=== PATIENT | male | born 1960 | race Caucasian/White ===

== ENCOUNTER 2016-11-02 07:06 | Day surgery (SDC) | payer BC ==
[~2016-11-02 07:06] MED LIST: Lactated Ringers 1,000 ML IV SCH
[2016-11-02] MEDS ORDERED: Acetaminophen 1,000 MG in Premix Bag 1 BAG IV ONE (08:21)
[2016-11-02] MEDS ORDERED: Bupivacaine 0.25%/EPINEPHrine 1:200,000 30 ML SDV ONE (08:37)
[2016-11-02] MEDS ORDERED: Ketamine 200 MG/20 ML MDV ONE (08:48)
[2016-11-02] MEDS ORDERED: fentaNYL 100 MCG/2 ML SDV ONE (08:48)
[2016-11-02] MEDS ORDERED: Propofol 200 MG/20 ML SDV ONE (08:48)
[2016-11-02] MEDS ORDERED: Ketorolac 30 MG/ML SDV ONE (09:57)
[2016-11-02] MEDS ORDERED: Acetaminophen/oxyCODONE 325-5 MG Tab PO PRN (10:46)
[2016-11-02 13:15] VITALS: BP 118/73
--- NOTE | 2016-11-02 14:38 | OR ---
PREOPERATIVE DIAGNOSIS: Symptomatic umbilical hernia. POSTOPERATIVE DIAGNOSIS: Symptomatic umbilical hernia. PROCEDURE PROPOSED: Umbilical hernia repair. PROCEDURE DONE: Umbilical hernia repair. INDICATION: This is a middle-aged gentleman with a symptomatic umbilical hernia, who comes in now for elective repair technique. The patient brought to the operative suite, given some IV sedation. His periumbilical region was trimmed and sterilely prepped and draped. The area was then locally anesthetized with 0.25% Marcaine with epinephrine. An infraumbilical transverse incision was made, carried down through the subcutaneous tissue. The hernia sac was freed up from the surrounding structures. The hernia was then reduced to any other fascial defect. It only measured about 1.5 cm. The edges of the fascia were trimmed up and was then closed in a transverse fashion with interrupted 0 Ethibond sutures, using approximately 6 stitches. The base umbilicus was then anchored to the fascia with 2 stitches of 3-0 Vicryl. The subcutaneous tissue reapproximated with interrupted 3-0 Vicryl. The skin closed with subcuticular stitch of 4-0 Vicryl and a sterile pressure dressing was applied. He tolerated the procedure well with minimal blood loss, and he was taken back to day surgery in good condition. SCM: 11/02/2016 10:04:15 MODL: 11/02/2016 11:13:55 /[id number]
== END 2016-11-02 12:20 | disposition home or self-care (01) ==
LOC: VM.SDS 07:06
PROVIDERS: ATTEND Surgery
DX: K42.9 Umbilical hernia without obstruction or gangrene (principal); I10 Essential (primary) hypertension; G47.33 Obstructive sleep apnea (adult) (pediatric); E78.5 Hyperlipidemia, unspecified; Z87.891 Personal history of nicotine dependence; Z79.82 Long term (current) use of aspirin; Z79.899 Other long term (current) drug therapy; Z98.52 Vasectomy status
CPT/HCPCS: 49585; A9270; J1885; J2704; J3010; J7120

== ENCOUNTER 2019-01-29 02:55 | Emergency (ER) | payer BC, OTHER ==
[2019-01-29] MEDS ORDERED: Sodium Chloride 0.9% 10 ML Syringe FLUSH PRN (03:13)
[2019-01-29] MEDS ORDERED: Nitroglycerin 0.4 MG Tab.SL SL ONE (03:17)
--- NOTE | 2019-01-29 03:48 | EDM.PDOC ---
ED HPI GENERAL MEDICAL PROBLEM - General Chief Complaint: Chest Pain Stated Complaint: Chest Pain Time Seen by Provider: 01/29/19 03:35 Source of Information: Reports: Patient History Limitations: Reports: No Limitations - History of Present Illness INITIAL COMMENTS - FREE TEXT/NARRATIVE: Pt. presents to ER with complaints of chest pressure, neck pain, and lip numbness. He states that he started having chest pain intermittently throughout the day yesterday. He states that he has a "chest cold" and has been coughing for the past several days. He states that he is also experiencing sinus congestion. He took Nyquil tonight to help him sleep. Pt. states that he went to bed at 2100 last night and work up at 2300 with chest pressure. He has continued to have it intermittently since then. He also complains of tingling to his upper and lower lips intermittently today as well. He states that he feels like he "can't get his air" and states that he feels anxious. He took 5 81 mg. ASA last night before he went to bed. Pt. also complains of a "kink in his neck" but on further questioning, he complains that his neck has been hurting all winter. Also, he states that he exerted himself moving a trailer yesterday. Comorbidities include smoking and hypertension. Denies any dyslipidemia or diabetes. Pt. states that his brother had his first heart attack at age 41. Pt. denies any nausea or vomiting. No back pain. No jaw pain. No nausea or vomiting. Denies diaphoresis. No lightheadedness. Onset: Today Onset Date: 01/28/19 Location: Reports: Chest Quality: Reports: Ache Associated Symptoms: Reports: Shortness of Breath. Denies: Nausea/Vomiting, Weakness Chest Pain Score (Numeric/FACES): 2 - Related Data Allergies Allergy/AdvReac Type Severity Reaction Status Date / Time No Known Allergies Allergy Verified 01/29/19 04:25 Home Meds: Home Meds Aspirin [Halfprin] 81 mg PO DAILY 10/27/16 [History] Enalapril Maleate [Vasotec] 10 mg PO DAILY 10/27/16 [History] Hydrochlorothiazide 12.5 mg PO QAM 10/27/16 [History] Multivitamin [Multivitamins] 1 tab PO DAILY 10/27/16 [History] Past Medical History Cardiovascular History: Reports: High Cholesterol, Hypertension Respiratory History: Reports: Sleep Apnea Gastrointestinal History: Reports: Other (See Below) Other Gastrointestinal History: UMB HERNIA - Past Surgical History GI Surgical History: Reports: Hernia, Inguinal ED ROS GENERAL - Review of Systems Review Of Systems: See Below Constitutional: Reports: No Symptoms HEENT: Reports: Other (lip tingling) Respiratory: Reports: Shortness of Breath Cardiovascular: Reports: Chest Pain Endocrine: Reports: No Symptoms GI/Abdominal: Reports: No Symptoms : Reports: No Symptoms Musculoskeletal: Reports: Neck Pain Skin: Reports: No Symptoms Neurological: Reports: No Symptoms Psychiatric: Reports: No Symptoms Hematologic/Lymphatic: Reports: No Symptoms Immunologic: Reports: No Symptoms ED EXAM, GENERAL - Physical Exam Exam: See Below Exam Limited By: No Limitations General Appearance: Alert, WD/WN, No Apparent Distress Nose: Normal Inspection Throat/Mouth: Normal Inspection, Normal Lips, Normal Gums, Normal Oropharynx, Normal Voice, No Airway Compromise Head: Atraumatic, Normocephalic Neck: Normal Inspection, Supple, Non-Tender, Full Range of Motion Respiratory/Chest: No Respiratory Distress, Normal Breath Sounds, No Accessory Muscle Use, Decreased Breath Sounds, Crackles, Wheezing Cardiovascular: Normal Peripheral Pulses, Regular Rate, Rhythm, No Edema, No Gallop, No JVD, No Murmur Peripheral Pulses: 4+: Radial (L), Radial (R), Dorsalis Pedis (L), Dorsalis Pedis (R) GI/Abdominal: Normal Bowel Sounds, Soft, Non-Tender, No Organomegaly, No Distention (Male) Exam: Deferred Rectal (Males) Exam: Deferred Back Exam: Normal Inspection, Full Range of Motion Extremities: Normal Inspection, Normal Range of Motion, Non-Tender, No Pedal Edema, Normal Capillary Refill Neurological: Alert, Oriented, CN II-XII Intact, Normal Cognition, Normal Gait, Normal Reflexes, No Motor/Sensory Deficits Psychiatric: Normal Affect, Normal Mood Skin Exam: Warm, Dry, Intact, Normal Color, No Rash Lymphatic: No Adenopathy EKG INTERPRETATION Rhythm: NSR [place]: Normal P-Wave: Present QRS: Normal ST-T: Normal QT: Normal Course - Vital Signs Last Recorded V/S: Last Vital Signs Temp 36.2 C 01/29/19 03:00 Pulse 87 01/29/19 03:00 Resp 16 01/29/19 03:00 BP 143/79 H 01/29/19 03:26 Pulse Ox 98 01/29/19 03:00 - Orders/Labs/Meds Orders: Active Orders 24 hr Category Date Time Status Chest 1V Frontal [CR] Stat Exams 01/29/19 03:48 Ordered Sodium Chloride 0.9% [Saline Flush] Med 01/29/19 03:13 Active 10 ml FLUSH ASDIRECTED PRN Peripheral IV Insertion Adult [OM.PC] Routine Oth 01/29/19 03:14 Ordered Medication Orders Sodium Chloride (Saline Flush) 10 ml FLUSH ASDIRECTED PRN PRN Reason: Keep Vein Open Last Admin: 01/29/19 03:25 Dose: 10 ml Labs: Laboratory Tests 01/29/19 01/29/19 01/29/19 Range/Units 03:15 03:15 03:15 WBC 10.8 H (4.0-10.0) x10^3/uL RBC 4.55 (4.5-6.0) x10^6/uL Hgb 14.4 (14.0-18.0) g/dL Hct 41.1 (40.0-52.0) % MCV 90.3 (78.0-93.0) fL MCH 31.6 (26.0-32.0) pg MCHC 35.0 (32.0-36.0) g/dL RDW Coeff of Butch 12.5 (10.0-15.0) % Plt Count 225 (130-400) x10^3/uL Neut % (Auto) 75.9 (50.0-80.0) % Lymph % (Auto) 16.7 L (25.0-50.0) % Mcleod % (Auto) 5.1 (2.0-11.0) % Eos % (Auto) 2.0 (0.0-4.0) % Baso % (Auto) 0.3 (0.2-1.2) % PT 10.7 (10.0-12.8) SEC INR 0.9 L (2.0-3.5) D-Dimer, Quantitative 0.48 (<=0.58) mg/LFEU Sodium 140 (136-145) mmol/L Potassium 3.7 (3.5-5.1) mmol/L Chloride 103 (98-107) mmol/L Carbon Dioxide 26 (21-32) mmol/L Anion Gap 14.7 (10-20) mmol/L BUN 21 H (7-18) mg/dL Creatinine 1.4 H (0.70-1.30) mg/dL Est Cr Clr Drug Dosing TNP Estimated GFR (MDRD) 52 Glucose 112 H (74-106) mg/dL Calcium 8.9 (8.5-10.1) mg/dL Corrected Calcium 9.30 (8.5-10.1) mg/dL Phosphorus 2.2 L (2.6-4.7) mg/dL Magnesium 1.9 (1.8-2.4) mg/dL Total Bilirubin 0.3 (0.2-1.0) mg/dL AST 17 (15-37) U/L ALT 27 (16-63) U/L Alkaline Phosphatase 84 (46-116) U/L Troponin I < 0.017 (<=0.056) ng/mL C-Reactive Protein 1.0 H (<=0.9) mg/dL NT-Pro-B Natriuret Pep 46 (<=125) pg/mL Total Protein 7.6 (6.4-8.2) g/dL Albumin 3.5 (3.4-5.0) g/dL Globulin 4.1 Albumin/Globulin Ratio 0.85 Meds: Medications Generic Name Dose Route Start Last Admin Trade Name Freq PRN Reason Stop Dose Admin Sodium Chloride 10 ml 01/29/19 03:13 01/29/19 03:25 Saline Flush FLUSH 10 ml ASDIRECTED PRN Administration Keep Vein Open Discontinued Medications Generic Name Dose Route Start Last Admin Trade Name Freq PRN Reason Stop Dose Admin Albuterol 1 packet 01/29/19 04:27 01/29/19 04:39 Take Home: Albuterol 6.7 Gm, 1 Inh Pack INH 01/29/19 04:28 1 packet ONETIME ONE Administration Doxycycline Monohydrate 1 packet 01/29/19 04:27 01/29/19 04:39 Take Home: Doxycycline 100 Mg, 4 Tab Pack PO 01/29/19 04:28 1 packet ONETIME ONE Administration Nitroglycerin 0.4 mg 01/29/19 03:17 01/29/19 03:26 Nitrostat SL 01/29/19 03:18 0.4 mg ONETIME ONE Administration Prednisone 1 packet 01/29/19 04:27 01/29/19 04:39 Take Home: Prednisone 20 Mg, 2 Tab Pack PO 01/29/19 04:28 1 packet ONETIME ONE Administration Departure - Departure Time of Disposition: 04:44 Disposition: Home, Self-Care 01 Condition: Good Clinical Impression: CAP (community acquired pneumonia) - Discharge Information Instructions: Community-Acquired Pneumonia, Adult, [id number] Referrals: Sony Alberts MD [Primary Care Provider] - Forms: ED Department Discharge Additional Instructions: Prednisone 20mg 2 tabs once daily for 5 days Doxycycline 100mg 1 tab twice daily for 10 days total Albuterol HFA inhaler 2 puffs every 4-6 hours as needed for shortness of breath Follow-up in clinic in 10-14 days for recheck - My Orders Last 24 Hours: My Active Orders 01/29/19 03:13 Sodium Chloride 0.9% [Saline Flush] 10 ml FLUSH ASDIRECTED PRN 01/29/19 03:14 Peripheral IV Insertion Adult [OM.PC] Routine 01/29/19 03:48 Chest 1V Frontal [CR] Stat - Assessment/Plan Last 24 Hours: My Active Orders 01/29/19 03:13 Sodium Chloride 0.9% [Saline Flush] 10 ml FLUSH ASDIRECTED PRN 01/29/19 03:14 Peripheral IV Insertion Adult [OM.PC] Routine 01/29/19 03:48 Chest 1V Frontal [CR] Stat Plan: Prednisone 20mg 2 tabs once daily for 5 days Doxycycline 100mg 1 tab twice daily for 10 days total Albuterol HFA inhaler 2 puffs every 4-6 hours as needed for shortness of breath Follow-up in clinic in 10-14 days for recheck
[2019-01-29 03:57] LABS: ANION GAP 14.7 mmol/L (10-20); CHLORIDE,CL 103 mmol/L (98-107); SODIUM,NA 140 mmol/L (136-145)
[2019-01-29] MEDS ORDERED: Take Home: Albuterol 6.7 GM Inhaler, 1 Inhaler Pack INH ONE (04:27)
[2019-01-29] MEDS ORDERED: Take Home: Doxycycline 100 MG Tab, 4 Tab Pack PO ONE (04:27)
[2019-01-29] MEDS ORDERED: Take Home: predniSONE 20 MG, 2 Tab Pack PO ONE (04:27)
[2019-01-29 05:29] VITALS: BP 115/64
--- NOTE | 2019-01-29 07:53 | CR ---
[id number] RAD/RAD Chest PA or AP 1V EXAM: RAD Chest PA or AP 1V INDICATION: CHEST PAIN, COUGH COMPARISON: None. DISCUSSION: Cardiomediastinal silhouette is normal in size and contour. No infiltrate, effusion, pneumothorax, or edema. IMPRESSION: Negative examination of the chest. Perico Ely MD 01/29/19 0752 Thank you for allowing us to participate in the care of your patient.
== END 2019-01-29 04:50 | disposition home or self-care (01) ==
LOC: VM.ED 02:55
DX: J18.9 Pneumonia, unspecified organism (principal); I10 Essential (primary) hypertension; Z79.82 Long term (current) use of aspirin; Z79.899 Other long term (current) drug therapy
CPT/HCPCS: 71045; 80053; 83735; 83880; 84100; 84484; 85025; 85379; 85610; 86140; 93005; 99285; A9270